=== PATIENT | male | born 1955 | race Caucasian/White ===

== ENCOUNTER 2021-04-10 11:07 | Emergency (ER) | payer OTHER ==
[~2021-04-10] VITALS: Ht 170.2 cm; Wt 79.4 kg
[2021-04-10 11:33] LABS: ABSOLUTE BASOPHILS 0.1 thou/uL (0.0-0.2); ABSOLUTE EOSINOPHILS 0.4 thou/uL (0.0-0.7); ABSOLUTE LYMPHOCYTES 2.6 thou/uL (0.8-5.3); ABSOLUTE MONOCYTES 0.6 thou/uL (0.0-1.2); ABSOLUTE NEUTROPHILS 3.3 thou/uL (1.6-8.1); BASOPHILS 0.8 %; HEMATOCRIT 43.8 % (42.0-52.0); HEMOGLOBIN 15.4 gm/dL (14.0-18.0); MCH 33.6 pg (26.0-34.0); MCHC 35.1 g/dL (28.0-37.0); MCV 95.6 fL (80.0-100.0); NUCLEATED RBCS 0 /100WBC; PLATELET COUNT* 201 thou/uL (150-400); POLYS 47.2 %; RBC 4.58 mil/uL (4.50-6.00); RDW-CV 13.4 % (10.5-14.5); WBC 6.9 thou/uL (4.0-11.0)
[2021-04-10 11:38] LABS: CREATININE 0.9 mg/dL (0.6-1.3); POTASSIUM 3.9 mmol/L (3.5-5.1)
[2021-04-10 11:47] LABS: ALBUMIN 3.9 g/dL (3.4-5.0); TOTAL BILIRUBIN 0.2 mg/dL (<0.1-1.0); TOTAL PROTEIN 8.3 g/dL (6.4-8.2)
[2021-04-10 12:30] VITALS: BP 146/73
--- NOTE | 2021-04-11 13:34 | EKG ---
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[id number] Requested By: Sundeep Worthington Order Number: [id number] Tara MD: Rod Garcia Measurements Intervals [place] Rate: 65 P: 70 AK: 165 QRS: -67 QRSD: 100 T: 33 QT: 435 QTc: 453 Interpretive Statements Sinus rhythm Probable left atrial enlargement Incomplete RBBB and LAFB Anteroseptal infarct, age indeterminate No previous ECG available for comparison Electronically Signed On 04-11-2021 13:34:01 CDT by Rod Garcia [email or web address] <ELECTRONICALLY SIGNED> By: Rod Garcia MD, [facility] 04/11/21 1334 1114 1114 Rod Garcia MD, [facility] /EPI
== END 2021-04-10 12:30 | disposition home or self-care (01) ==
LOC: M.ERS 11:07
PROVIDERS: Emergency Medicine
DX: R11.2 Nausea with vomiting, unspecified (principal); K22.6 Gastro-esophageal laceration-hemorrhage syndrome; F17.210 Nicotine dependence, cigarettes, uncomplicated